=== PATIENT | male | born 1970 | race Asian ===

== ENCOUNTER 2020-03-10 19:29 | Emergency (ER) | payer BC, SELFPAY ==
[~2020-03-10] VITALS: Ht 160 cm; Wt 68.0 kg
[2020-03-10 19:31] VITALS: Ht 160 cm; Wt 68.0 kg
[2020-03-10 20:18] VITALS: BP 154/93
== END 2020-03-10 20:18 | disposition home or self-care (01) ==
LOC: ED 19:29
DX: J30.9 Allergic rhinitis, unspecified (principal); I10 Essential (primary) hypertension; J45.909 Unspecified asthma, uncomplicated